=== PATIENT | male | born 1990 | race Caucasian/White ===

== ENCOUNTER 2016-03-21 15:32 | Emergency (ER) | payer MEDICAID ==
[~2016-03-21] VITALS: Ht 162.6 cm; Wt 77.5 kg
[2016-03-21 15:45] VITALS: Ht 162.6 cm; Wt 77.5 kg
[2016-03-21] MEDS ORDERED: HYDROCODONE/APAP (10/325) TAB PO ONE (17:00)
--- NOTE | 2016-03-21 17:26 | RADRPT ---
PROCEDURE: XR right wrist. CLINICAL INDICATION: Wrist pain TECHNIQUE: Three views are available for review. COMPARISON: No prior studies are available for comparison. FINDINGS: The osseous structures are normal in mineralization, architecture and alignment. No fracture or oss eous lesion is identified. The joints are unremarkable. The soft tissues are unremarkable. IMPRESSION: Unremarkable examination. RPTAT: HGDB .Ivan Ochoa MD, Date Time Electronically viewed and signed by .Ivan Ochoa MD, on 03/21/2016 17:26 .B/
[2016-03-21] MEDS ORDERED: DIPHTH/TET/ACEL PERTUSS (ADULT) 0.5 ML VIAL IM* ONE (17:30)
--- NOTE | 2016-03-21 17:30 | ERD ---
ER Documentation Chief Complaint Date/Time DATE: 03/21/16 TIME: 17:20 Chief Complaint HAD A 3 FOOT FALL AND LANDED ON HIS HEAD HPI 25-year-old male who presents to the emergency department today for a laceration on the right side of his head and wrist pain after falling off a three-foot pedestal and landing on his head. 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 Denies any vision changes, loss of consciousness , nausea vomiting, changes. States he has some slight pain radiating hit his head. States he has pain in his right wrist. ROS All systems reviewed and are negative except as per history of present illness. Medications Home Meds Active Scripts Acetaminophen* (Tylophen*) 500 Mg Capsule, 1 CAP PO Q6H Y for PAIN AND OR ELEVATED TEMP, #30 CAP Prov:KATHLEEN MURRELL PA-C 03/21/16 Hydrocodone/Acetaminophen (Angwin 10-325 Tablet) 1 Each Tablet, 1 TAB PO Q6H Y for PAIN, #12 TAB Prov:KATHLEEN MURRELL PA-C 03/21/16 Allergies Allergies: Coded Allergies: No Known Allergy (Unverified , 03/21/16) PMhx/Soc Medical and Surgical Hx: pt denies Medical Hx, pt denies Surgical Hx Physical Exam Vitals Vital Signs Date Time Temp Pulse Resp B/P Pulse Ox O2 Delivery O2 Flow Rate FiO2 03/21/16 15:45 98.3 82 18 138/87 100 Physical Exam Const: No acute distress Head: Hematoma left frontal aspect right side of forehead with small 0.5 cm laceration. Eyes: Normal Conjunctiva. PERRLA. EOM intact. Nontender orbits. ENT: Ears TMs normal. No hemotympanum. No epistaxis. Throat no erythema no evidence of bleeding. Neck: Full range of motion..~ No meningismus. Resp: Clear to auscultation bilaterally Cardio: Regular rate and rhythm, no murmurs Abd: Soft, non tender, non distended. Normal bowel sounds Skin: 0.5 cm laceration right side of forehead Back: No midline or flank tenderness MSK: Right wrist with full active range of motion. No obvious deformity. No effusion. Mild tenderness to palpation over thenar eminence and the hamate bone. Pulses 2+. Distal neurovascularly intact. Nontender scaphoid. Neur: Awake and alert. GCS 15. No gait ataxia. Psych: Normal Mood and Affect Results 24 hrs Current Medications Medications (Trade) Dose Ordered Sig/Soledad Route PRN Reason Start Time Stop Time Status Last Admin Dose Admin Acetaminophen/ Hydrocodone Bitart (Angwin (10/325)) 1 tab ONCE ONCE PO 03/21/16 17:00 03/21/16 17:01 DC 03/21/16 17:43 Diphtheria/ Tetanus/Acell Pertussis (Adacel) 0.5 ml ONCE ONCE IM* 03/21/16 17:30 03/21/16 17:31 DC 03/21/16 17:44 Patient: JAQUI PAVON : 1990 Age: 25 Sex: M MR #: [id number] DOS: 03/21/16 0000 Ordering MD: KATHLEEN MURRELL PA-C Location: [facility] Room/Bed: PROCEDURE: XR right wrist. CLINICAL INDICATION: Wrist pain TECHNIQUE: Three views are available for review. COMPARISON: No prior studies are available for comparison. FINDINGS: The osseous structures are normal in mineralization, architecture and alignment. No fracture or osseous lesion is identified. The joints are unremarkable. The soft tissues are unremarkable. IMPRESSION: Unremarkable examination. RPTAT: HGDB .Ivan Ochoa MD, MD Date Time Electronically viewed and signed by .Ivan Ochoa MD, MD on 03/21/2016 17:26 .B/ CC: KATHLEEN MURRELL PA-C Procedures/MDM This is a 25-year-old male who presents to emergency department today with a hematoma and laceration over the right side of his forehead. Patient also has some hand pain. On physical exam patient had a hematoma on the right side of his forehead. He had a small laceration of approximately 0.5 cm that was not deep enough to require sutures at this time. I did close the wound with Steri- Strips and I've explained this to the patient and patient is understanding that he does not require sutures at this time. Patient had no loss of consciousness. He has no nausea or vomiting. He denied any vision changes. He is sitting in the recliner talking on the phone to his friend. I do not feel the patient requires a head CT scan at this time. His GCS is 15. He has no focal neurologic deficits. He has no gait ataxia. He has no neck pain. He has no hemotympanum, or Solorzano sign. He is nontender around his orbits. Patient was able to tell me exactly what happened. I did obtain images of the right wrist however. Images of the right wrist are unremarkable. There is no acute fracture dislocation. It is at this time consistent with a contusion versus sprain versus strain. Patient was not up-to-date on his tetanus and I did give him one here today. I did explain head injury precautions with the patient. I instructed him to return to the emergency department in 48 hours for a wound check. At this time the patient is stable for discharge and outpatient management. Patient should follow up with their PCP in the next 1-2 days. They may return to the emergency department sooner for any persistent or worsening of symptoms. Patient understood and agreed with the plan. I discussed the case with Dr. Zamudio and he is in agreement with the plan. Departure Diagnosis: Primary Impression: Acute head injury Encounter type: initial encounter Qualified Code: S09.90XA - Acute head injury, initial encounter Additional Impression: Wrist injury Encounter type: initial encounter Laterality: right Qualified Code: S69.91XA - Wrist injury, right, initial encounter Condition: KATHLEEN Arevalo PA-C Mar 21, 2016 17:30
[2016-03-21] MEDS ORDERED: HYDR-902 PO (17:58)
[2016-03-21] MEDS ORDERED: ACET500C5 PO (17:58)
[2016-03-21 18:16] VITALS: BP 132/75; PULSE 66; RESP 18; TEMP 98.3
== END 2016-03-21 18:15 | disposition home or self-care (01) ==
LOC: FTE 15:32
DX: S09.90XA Unspecified injury of head, initial encounter (principal); W18.09XA Striking against other object with subsequent fall, initial encounter; Y92.9 Unspecified place or not applicable; Z23 Encounter for immunization
CPT/HCPCS: 73110; 90471; 90715; Z7502; Z7610

== ENCOUNTER 2016-03-23 09:45 | Emergency (ER) | payer MEDICAID ==
[~2016-03-23] VITALS: Ht 160 cm; Wt 76.0 kg
[~2016-03-23 09:45] MED LIST: ACET500C5 PO; HYDR-902 PO
[2016-03-23 09:47] VITALS: Ht 160 cm; Wt 76.0 kg
--- NOTE | 2016-03-23 10:51 | ERA ---
ER Documentation Chief Complaint Date/Time DATE: 03/23/16 TIME: 10:42 Chief Complaint 2 day wound check right forhead HPI 25-year-old male presents to the department for wound recheck of laceration to the right side of his forehead. The patient denies fevers, chills, discharge, bleeding, or other symptoms. He had Steri-Strips put on the laceration approximately 2 days ago when he was seen here. He states he is simply here to have the wound rechecked and take off the Steri-Strips. There are no other alleviating or exacerbating factors at this time. ROS All systems reviewed and are negative except as per history of present illness. Medications Home Meds Active Scripts Acetaminophen* (Tylophen*) 500 Mg Capsule, 1 CAP PO Q6H Y for PAIN AND OR ELEVATED TEMP, #30 CAP Prov:KATHLEEN MURRELL PA-C 03/21/16 Hydrocodone/Acetaminophen (Hunker 10-325 Tablet) 1 Each Tablet, 1 TAB PO Q6H Y for PAIN, #12 TAB Prov:KATHLEEN MURRELL PA-C 03/21/16 Allergies Allergies: Coded Allergies: No Known Allergy (Unverified , 03/21/16) PMhx/Soc History of Surgery: No Anesthesia Reaction: No Hx Neurological Disorder: No Hx Respiratory Disorders: No Hx Cardiac Disorders: No Hx Psychiatric Problems: No Hx Miscellaneous Medical Probl: No Hx Alcohol Use: Yes Hx Substance Use: No Hx Tobacco Use: No Smoking Status: Never smoker FmHx Noncontributory for chief complaint Physical Exam Vitals Vital Signs Date Time Temp Pulse Resp B/P Pulse Ox O2 Delivery O2 Flow Rate FiO2 03/23/16 09:47 97.9 79 18 136/81 99 Physical Exam Const: The patient is resting comfortably in no acute distress Head: Atraumatic Eyes: Normal Conjunctiva ENT: Normal External Ears, Nose and Mouth. Neck: Full range of motion. No meningismus. Resp: Clear to auscultation bilaterally Cardio: Regular rate and rhythm, no murmurs Abd: Soft, non tender, non distended. Normal bowel sounds Skin: 0.5 cm well-healing laceration to the right forehead. There is no discharge. There is slight active bleeding after Steri-Strips were removed. Back: No midline or flank tenderness Ext: No cyanosis, or edema Neur: Awake and alert Psych: Normal Mood and Affect Procedures/MDM ED course: The laceration was cleaned and Steri-Strips were applied. MDM: 25-year-old male presents to the department for wound recheck of laceration of the right side of the forehead. The area appears clean, dry, and Steri-Strips are in place. After I removed the Steri-Strips the laceration began to bleed slightly but there was no discharge, erythema, tenderness to palpation or other signs of infection present. The area was cleaned and Steri-Strips were reapplied. At this time I have no concerns for infection and the laceration appears to be healing well. I do not feel a CT scan of the head is indicated because the patient has no focal neurological deficits and he was also evaluated neurologically at the time of the incident. The patient was given counseling regarding proper wound care and he is to follow-up with his primary care physician or return to the emergency department if he has any fevers, discharge, or active bleeding. The patient agrees with the plan and he has no further questions at this time. He is stable for discharge. Departure Diagnosis: Primary Impression: Encounter for wound re-check Condition: Stable Patient Instructions: Wound Care Additional Instructions: FOLLOW UP WITH YOUR PRIMARY CARE PHYSICIAN TOMORROW.Return to this facility if you are not improving as expected. Keep area clean and dry. Return immediately to the ER or your primary care doctor if any bleeding, discharge, or fevers occur. PRAVIN LIRA PA-C Mar 23, 2016 10:51
== END 2016-03-23 10:25 | disposition home or self-care (01) ==
LOC: FTE 09:45
DX: Z48.01 Encounter for change or removal of surgical wound dressing (principal)
CPT/HCPCS: 99281